=== PATIENT | male | born 1940 | race Caucasian/White ===

== ENCOUNTER 2017-11-17 09:24 | Day surgery (SDC) | payer MEDICARE, SELFPAY ==
[2017-11-12 15:15] VITALS: BMI 26.4
[2017-11-17] VITALS (9 sets, daily range): BP systolic 109–175; BP diastolic 77–107; PULSE 66–74; RESP 18–20; TEMP 36.4–36.7; O2SAT 93–99
--- NOTE | 2017-11-17 10:11 | HMH.PROC ---
[facility] Procedure Note Procedure Note:: Upper Endoscopy Procedure Report: Esophagogastroduodenoscopy with TTS balloon dilation Endoscopost: Dann Kirk II, MD Referring Physician: Rakesh Lainez M.D./Hieu Sifuentes MD Date of Procedure: November 17, 2017 Equipment: Olympus GIF 180 standard upper endoscope Sedation: Fentanyl 100 mg IV/ Versed 7 mg IV Indications: Mr. Sánchez is a 77-year-old gentleman with dysphagia that began a couple of months ago. He was having some heartburn which improved with omeprazole. Symptoms have improved. He reports no heartburn, reflux, bloating, belching, nausea or early satiety. He reports no abdominal pain and reports regular bowel function. This is his first upper endoscopy. He was having some globus sensation. Procedure: Prior to the procedure, a history and physical exam was performed, and patient's medications and allergies were reviewed. The risks, benefits and alternatives of the sedation and procedure were discussed with the patient. All questions were answered and informed consent was obtained. The patient was brought to the procedure room. Patient identification and proposed procedure were verified by the physician and the nurse. The patient was placed in a left lateral decubitus position and the scope was passed under direct vision. Throughout the procedure, the patient's blood pressure, pulse, and oxygen saturations were monitored continuously. The upper GI endoscopy was accomplished without difficulty. The patient tolerated the procedure well. Findings: The scope was passed directly into the upper esophagus and advanced to the third portion of the duodenum. The post bulbar duodenum and duodenal bulb were normal with normal mucosa and conniventes. The scope was withdrawn through a normal duodenal bulb and pylorus into the stomach. There was some mild linear reactive antritis/gastritis. The remainder of the antrum, body and fundus of the stomach were grossly normal. Upon retroflexion there was a small 2 cm hiatal hernia. The scope was then withdrawn into the esophagus. There was a distal Schatzki's ring that did not appear to be significant. There were some tertiary contractions and mild esophageal dysmotility. The entire esophagus was dilated to 60 Danish/20 mm with a TTS hydrostatic balloon. There was some resistance at the cricopharyngeus. The remainder of the esophageal mucosa was normal. Impression: 1. Mild cricopharyngeal spasm 2. Insignificant Schatzki's ring with small 2 cm hiatal hernia and nonerosive GERD 3. Mild linear reactive antritis/gastritis Plan: The patient is clinically improved with omeprazole. I would encourage screening colonoscopy since he has not had one previously.
--- NOTE | 2017-11-17 10:15 | P.PCN_ITS ---
[facility] Procedure Note Procedure Note:: Upper Endoscopy Procedure Report: Esophagogastroduodenoscopy with TTS balloon dilation Endoscopost: Dann Kirk II, MD Referring Physician: Rakesh Lainez M.D./Hieu Sifuentes MD Date of Procedure: November 17, 2017 Equipment: Olympus GIF 180 standard upper endoscope Sedation: Fentanyl 100 mg IV/ Versed 7 mg IV Indications: Mr. Sánchez is a 77-year-old gentleman with dysphagia that began a couple of months ago. He was having some heartburn which improved with omeprazole. Symptoms have improved. He reports no heartburn, reflux, bloating , belching, nausea or early satiety. He reports no abdominal pain and reports regular bowel function. This is his first upper endoscopy. He was having some globus sensation. Procedure: Prior to the procedure, a history and physical exam was performed, and patient' s medications and allergies were reviewed. The risks, benefits and alternatives of the sedation and procedure were discussed with the patient. All questions were answered and informed consent was obtained. The patient was brought to the procedure room. Patient identification and proposed procedure were verified by the physician and the nurse. The patient was placed in a left lateral decubitus position and the scope was passed under direct vision. Throughout the procedure, the patient's blood pressure, pulse, and oxygen saturations were monitored continuously. The upper GI endoscopy was accomplished without difficulty. The patient tolerated the procedure well. Findings: The scope was passed directly into the upper esophagus and advanced to the third portion of the duodenum. The post bulbar duodenum and duodenal bulb were normal with normal mucosa and conniventes. The scope was withdrawn through a normal duodenal bulb and pylorus into the stomach. There was some mild linear reactive antritis/gastritis. The remainder of the antrum, body and fundus of the stomach were grossly normal. Upon retroflexion there was a small 2 cm hiatal hernia. The scope was then withdrawn into the esophagus. There was a distal Schatzki's ring that did not appear to be significant. There were some tertiary contractions and mild esophageal dysmotility. The entire esophagus was dilated to 60 [place]/20 mm with a TTS hydrostatic balloon. There was some resistance at the cricopharyngeus. The remainder of the esophageal mucosa was normal. Impression: 1. Mild cricopharyngeal spasm 2. Insignificant Schatzki's ring with small 2 cm hiatal hernia and nonerosive GERD 3. Mild linear reactive antritis/gastritis Plan: The patient is clinically improved with omeprazole. I would encourage screening colonoscopy since he has not had one previously.
== END 2017-11-17 11:00 | disposition home or self-care (01) ==
PROVIDERS: Family Provider Family Medicine; PCP Family Medicine; Visit Provider Internal Medicine Gastroenterology
PROC: 0DJ08ZZ Inspection of Upper Intestinal Tract, Via Natural or Artificial Opening Endoscopic (ICD-10-PCS; CPT 43235; principal; 2017-11-17 10:30)
DX: J39.2 Other diseases of pharynx (principal); K22.2 Esophageal obstruction; K44.9 Diaphragmatic hernia without obstruction or gangrene; K29.60 Other gastritis without bleeding
CPT/HCPCS: 43249; 99152; C1726

== ENCOUNTER → 2018-06-30 13:19 | Outpatient (CLI) | payer MEDICARE, SELFPAY ==
[2018-06-30 13:44] LABS: Blood Urea Nitrogen 30 mg/dL (7-18); Creatinine,Serum 1.14 mg/dL (0.70-1.30); Estimated Glomerular Filt Rate 62 ml/min (>60); GFR (African American) 75 ML/MIN (>60)
--- NOTE | 2018-06-30 13:50 | CT_ITS ---
CT head/brain wo/w con HISTORY: Severe headache, left temporal pain ITS.REASON: TEMPORAL PAIN ORDERING PHYSICIAN: Sandee Lainez MD PATIENT AGE: 78 years COMPARISON: None TECHNIQUE: Axial images obtained without and with contrast. Brain and bone windows reviewed. All CT scans at the facility use one or more dose reduction, viz: automated exposure control, ma/kV adjustment per patient size (including targeted exams where dose is matched to indication, i.e. head), or iterative reconstruction technique. FINDINGS: No midline shift, mass effect, intracranial hemorrhage, hydrocephalus, or extra-axial fluid collection is evident. No enhancing lesions. No large aneurysms. No intra or extra-axial mass. The calvarium has an unremarkable appearance. No mastoid effusion. No sinus air-fluid levels.. IMPRESSION: Negative CT head without and with contrast.
== END ==
PROVIDERS: PCP Family Medicine; Visit Provider Family Medicine
DX: R51 Headache (principal)
CPT/HCPCS: 36415; 70470; 82565; 84520; Q9967

== ENCOUNTER → 2022-01-16 06:12 | Outpatient (CLI) | payer SELFPAY ==
--- NOTE | 2022-01-16 06:14 | CT_ITS ---
FINAL REPORT TECHNIQUE: Thin-section axial images were obtained through the heart and coronary arteries per CT coronary calcium score protocol. This study was performed with techniques to keep radiation doses as low as reasonably achievable (ALARA). Individualized dose reduction techniques using automated exposure control or adjustment of mA and/or kV according to the patient's size were employed. CLINICAL HISTORY: . abnormal ekg, chest pain FINDINGS: CT-CHEST WITHOUT W/ CALCIUM SCORE The coronary artery calcium score is 243 based on the Agatston scale. This coronary artery calcium score places the patient within the 30th percentile based on age and gender. The heart size is normal. There is no pleural or pericardial effusion. Limited evaluation of the lungs reveal no suspicious nodule. IMPRESSION: Coronary artery calcium score is 243 which places the patient within the 30th percentile based on age and gender. Reviewed, Interpreted and Dictated by Albert Villegas MD Transcribed by Laurel White Authenticated by Albert Villegas MD on 01/16/2022 11:37:00 AM [facility]
== END ==
PROVIDERS: PCP Family Medicine; Visit Provider Internal Medicine Cardiovascular Disease
DX: R94.31 Abnormal electrocardiogram [ECG] [EKG] (principal); R00.2 Palpitations; I10 Essential (primary) hypertension
CPT/HCPCS: 75571

== ENCOUNTER → 2022-01-16 06:15 | Outpatient (CLI) | payer MEDICARE, OTHER, SELFPAY ==
--- NOTE | 2022-01-16 06:16 | CA_ITS ---
APPROVED REPORT EXAM: Comprehensive 2D, Doppler, and color-flow Echocardiogram Certified Residential Medication Aide: Orquidea Garcia, KD, RVS Ht: 6 ft 2 in Wt: 199lbs BSA: 2.17 BP: 150/80 mmHg Indications: Palpitations, ABN EKG, cardiac arrythmia, Murmur, HTN 2D Dimensions Aortic Root 3.74 cm LA Volume 85.50 mL Left Atrium 2.65 cm LA Volume Index 39.40 mL/m2 (M/F) 16-34 LVOT 2.10 cm (M/F) 1.5-2.5 M-Mode Dimensions RVDd 1.63 cm (0.9-2.6) LA Diam 3.62 cm (1.9-4.0) LVDd 6.50 cm (3.5-5.7) Ao Diam 3.96 cm (2.0-3.7) LVDs 4.22 cm (3.5-5.7) IVSd 1.06 cm (0.6-1.1) PWd 0.91 cm (0.6-1.1) EF (Teich) 63.20% EPSs 0.80 cm FS 35.10% EDV (Teich) 216.00 mL TAPSE 2.34 (<1.7) ESV (Teich) 79.50 mL LV Diastology E Decel Time 317.00 (160-240 msec) E/A Ratio 1.16 MED E' 7.90 (< 7 cm/sec) MED A' 11.40 cm/s E'/MED E' Ratio 7.00 (>14) LAT E' 7.20 (<10 cm/sec) LAT A' 11.30 cm/s E/LAT E' Ratio 7.68 (>14) Aortic Valve LVOT Max 85.00 (70-110 cm/s) LVOT VTI 20.70 cm AoV Peak Leobardo. 126.00 (50-130 cm/s) AI PHT 833.00 ms AO Peak GR. 6.40 mmHg AO Mean GR. 3.20 (<5 mmHg) AO VTI 28.64 (18-25 cm) VIVEK (VTI) 2.50 (2.5-4.5 cm2) Mitral Valve MV A Velocity 48.00 (40-130 cm/s) E/A Ratio 1.16 MV Decel. Time 317.00 (160-240 ms) Pulmonary Valve PV Peak Velocity 109.00 (50-150 cm/s) CO End VMAX 162.00 cm/s Tricuspid Valve TR P. Velocity 306.00 cm/s RAP Estimate 10.00 mmHg RVSP 47.50 mmHg Left Ventricle Left atrium is mildly enlarged, left ventricle is normal size, mild concentric left ventricular hypertrophy, estimated ejection fraction 50% with no obvious regional wall motion abnormality, grade 1 diastolic dysfunction seen without tissue Doppler evidence of raise left atrial pressure. Right Ventricle Right atrium and right ventricle mildly enlarged with normal contractility. Aortic Valve Aortic valve is thickened and calcified without aortic stenosis, there is mild aortic insufficiency. Mitral Valve Mitral valve is minimally thickened, there is mild mitral regurgitation. Tricuspid Valve Tricuspid grossly normal, there is mild tricuspid regurgitation, calculated right ventricular systolic pressure is 47 mmHg. Pulmonic Valve Pulmonic valve is poorly visualized. Great Vessels Aortic root is normal size. Inferior vena cava is poorly visualized. Pericardium No significant pericardial effusion noted. Conclusion 1. Biatrial enlargement, normal left ventricular size, mild concentric left ventricular hypertrophy, estimated ejection fraction 50% with no regional wall motion abnormality, grade 1 diastolic dysfunction seen without tissue Doppler evidence of raise left atrial pressure. 2. Mildly enlarged right ventricle with normal contractility. 3. Thickened and calcified aortic valve without aortic stenosis, there is mild aortic insufficiency. 4. Mild mitral and tricuspid regurgitation, calculated right ventricular systolic pressure is 47 mmHg. 5. No significant pericardial effusion. 6. Inferior vena cava is poorly visualized. Electronically signed by : Denver Cortes MD 01/16/2022 21:24:54
--- NOTE | 2022-01-16 06:16 | CA_ITS ---
APPROVED REPORT Exam: Exercise Treadmill Technologist: Alexus Hanna, Ht: 6 ft 2 in Wt: 199 lbs BSA: 2.17 m2 HR: 55 bpm BP: 169/95 mmHg Rhythm: sinus eliza, 1st degree AVB, frequent PVCs, LAFB Medical History Medical History: HTN Medications: Omeprazole,,,,, MeLOXICAM,,,,, Cardiac Risk Factors: HTN Stress Test Details Test: Braeden HR Resting HR: 62 bpm Max Heart Rate (APMHR): 140.377580 bpm Max HR Achieved: 134 bpm Target HR (85% APMHR): 119.710920 bpm % of APMHR: 95.71 Recovery HR: 112 bpm BP Resting BP: 158/93 mmHg Max BP: 186/90 mmHg Recovery BP: 178.0/109.0 mmHg ECG Resting ECG: sinus eliza, 1st degree AVB, frequent PVCs, LAFB Clinical Exercise duration: 08:16 min Highest Stage Achieved: Exercise capacity: 10.1 METs Stress ECG Conclusion Pt exercised 8:16 on braeden protocol into stage 3. No CP noted. Frequent PVCs, occasional vent couplet. Occasional PAC. Allowing for motion artifact the ST response to exercise is within normal. Frequent vent ectopy, otherwise normal GXT. Myoview images reported separately. Test Summary REST . . . . . . . Sitting REST . . . . . . . Standing REST 06:04 0.0 0.0 62 . 158/ 93 . . Stage 1 01:00 10.0 1.7 82 . . . . Stage 1 02:00 10.0 1.7 86 . . . . Stage 1 03:00 10.0 1.7 89 . 184/ 98 . . Stage 2 01:00 12.0 2.5 95 . . . . Stage 2 02:00 12.0 2.5 100 . . . . Stage 2 03:00 12.0 2.5 105 . 186/ 90 . . Stage 3 01:00 14.0 3.4 113 . . . . Stage 3 02:00 14.0 3.4 119 . . . . Stage 3 02:16 14.0 3.4 124 . . . Stop exercise at 08:16 RECOVERY 01:00 0.0 0.0 112 . . . . RECOVERY 02:00 0.0 0.0 86 . . . . RECOVERY 03:00 0.0 0.0 78 . . . . RECOVERY 04:00 0.0 0.0 74 . . . . RECOVERY 05:00 0.0 0.0 77 . 178/109 . . RECOVERY 06:00 0.0 0.0 70 . 146/105 . . RECOVERY 07:00 0.0 0.0 66 . 146/105 . . RECOVERY 08:00 0.0 0.0 69 . 146/105 . . RECOVERY 08:26 0.0 0.0 69 . 163/ 96 . . Electronically signed by : Denver Cortes MD 01/16/2022 22:08:04
--- NOTE | 2022-01-16 06:28 | NM_ITS ---
APPROVED REPORT Exam: Nuclear Stress Test Indication: HTN, PALPATATIONS, ABN EKG Patient Location: Outpatient Stress Tech: Alexus Hanna NM Tech:Marlen De La OANDIE RT (R)(N)(M) Ht: 6 ft 4 in Wt: 199 lbs HR: 55 bpm BP: 169/95 mmHg BSA: 2.21 m2 BMI: 24.2 History: HTN, PALPATATIONS, ABN EKG Procedure: Patient exercised on Braeden protocol 8:16 minutes and sec, resting heart rate 55 bpm, resting blood pressure 169/95 mmHg, with exercise maximum heart rate achived was 121 bpm which is 89 % of the maximum predicted heart rate and blood pressure was 186/90 mmHg. Test was stopped due to SOA. Patient denied any complaint of chest pain. Patient has good exercise capacity, achieved 10.1 METs of workload on treadmill, the blood pressure response to exercise was Adequate. Electrocardiogram Resting electrocardiogram shows sinus rhythm, with exercise there is less than 1.[address] segment depression noted from the baseline EKG. The EKG portion of the exercise Myoview is negative for ischemia. Cardiac Stress and Resting SPECT Images: Cardiac Stress and Resting SPECT images were obtained using technetium 99m Myoview 31.5 mCi stress and 10.37 mCi at rest. Gated SPECT for analysis of segmental wall motion and calculation of the ejection fraction also done. Cardiac stress and resting SPECT, show partial reversible defect involving the inferior wall consistent with mixed ischemia and scar, computer derived ejection fraction 38% with moderate inferior wall hypokinesis. Right ventricle is normal size and contractility. Conclusion: 1. The EKG portion of the exercise Myoview is negative for ischemia, patient has good exercise capacity achieved 10.1 METs of workload on treadmill, the blood pressure response to exercise was adequate, there was no exercise-induced chest discomfort. 2. Scintigraphic evidence of mixed ischemia and scar involving the inferior wall, computer derived ejection fraction 38% with segmental wall motion abnormality described above, right ventricle is normal size and contractility 3. Abnormal exercise Myoview study. Electronically signed by : Denver Cortes MD 01/16/2022 22:13:53
== END ==
PROVIDERS: PCP Family Medicine; Visit Provider Internal Medicine Cardiovascular Disease
DX: I10 Essential (primary) hypertension (principal); R00.2 Palpitations; R94.31 Abnormal electrocardiogram [ECG] [EKG]
CPT/HCPCS: 78452; 93017; 93306; A9502

== ENCOUNTER → 2022-01-26 08:59 | Outpatient (CLI) | payer MEDICARE, OTHER, SELFPAY ==
[2022-01-26 09:59] LABS: Basophils # 0.1 K/mm3 (0-0.2); Basophils % 0.7 % (0.1-2.0); Eosinophils # 0.1 K/mm3 (0.0-0.4); Eosinophils % 1.6 % (0.1-12.0); Hematocrit 46.4 % (42.0-52.0); Hemoglobin 15.2 g/dL (14.1-18.0); Lymphocytes # 1.3 K/mm3 (0.7-4.5); Lymphocytes % 14.2 % (10-50); Mean Corpuscular HGB Conc 32.8 g/dL (31.8-35.4); Mean Corpuscular Hemoglobin 35.7 pg (27.0-31.2); Mean Corpuscular Volume 108.8 fl (80-94); Mean Platelet Volume 8.5 fl (7.4-10.4); Monocytes # 1.1 K/mm3 (0.1-1.0); Monocytes % 12.3 % (1.7-9.3); Neutrophils # 6.4 K/mm3 (1.8-7.8); Neutrophils % 71.1 % (37.0-80.0); Platelet Count 310 K/mm3 (142-424); Red Blood Count 4.26 M/mm3 (4.60-6.20); Red Cell Distribution Width 14.3 % (11.5-17.5); White Blood Count 8.9 K/mm3 (4.8-10.8)
[2022-01-26 10:33] LABS: Anion Gap 13.3 mEq/L (5-15); Blood Urea Nitrogen 23 mg/dl (9-20); Calcium 8.3 mg/dl (8.4-10.2); Carbon Dioxide 26 mmol/L (22.0-30.0); Chloride 103 mmol/L (98-107); Estimated Glomerular Filt Rate 58 ml/min (>60); GFR (African American) 70 ML/MIN (>60); Glucose 99 mg/dl (74-100); Potassium 4.3 mmoL/L (3.5-5.1); Sodium 138 mmol/L (136-145)
== END ==
PROVIDERS: Visit Provider Internal Medicine Cardiovascular Disease
DX: I10 Essential (primary) hypertension (principal); R00.2 Palpitations; R94.30 Abnormal result of cardiovascular function study, unspecified; R94.31 Abnormal electrocardiogram [ECG] [EKG]; Z01.812 Encounter for preprocedural laboratory examination; Z11.52 Encounter for screening for COVID-19
CPT/HCPCS: 36415; 80048; 85025; C9803; U0003; U0005

== ENCOUNTER 2022-01-28 08:31 | Day surgery (SDC) | payer MEDICARE, OTHER, SELFPAY ==
[2022-01-28] VITALS (11 sets, daily range): BP systolic 118–200; BP diastolic 71–117; PULSE 51–71; RESP 18; O2SAT 94–100; BMI 25.7
--- NOTE | 2022-01-28 07:15 | IR_ITS ---
APPROVED REPORT Patient Location: Outpatient Saw Offbearer: ANDIE Cavazos RT (R) PROCEDURES Left heart catheterization Left ventriculogram Selective coronary angiogram FFR to the LAD Intravascular lithotripsy Drug-eluting stent deployment to the proximal LAD INDICATION Coronary artery disease, Systolic congestive heart failure, Eccentric calcification above the proximal LAD, Angiographic ambiguity in the proximal LAD, Ischemic response to adenosine with an FFR index of 0.77 Informed consent was obtained prior to the procedure. COMPLICATIONS None Estimated Blood Loss: Less than 10 mls TECHNIQUE One percent lidocaine used to anesthetize the right anterior aspect of the wrist. The right radial artery was accessed via the Seldinger technique. A 6 Icelandic sheath was placed in the right radial artery. 2.5 mg of verapamil, 800 mcg of nitroglycerin, 1mg Lidocaine and 5000 U Heparin were given through the arterial sheath. The papa catheter was also used to perform left heart catheterization, left ventriculogram and selective coronary angiogram. At the end the diagnostic angiogram initially a Poppa catheter was used however this was not providing adequate guide support therefore a 6 Icelandic JL 3 guide catheter was ultimately used for the terminal aspect of the interventional procedure. Therapeutic heparin was administered giving a therapeutic ACT at the end of the diagnostic angiogram. A Choice PT extra-support wire was placed distally in the LAD and an FFR catheter was equalized and adenosine was infused. The FFR index dropped to 0.77 therefore the apparatus was removed. Because of the eccentric calcified proximal lesion a 3 mm x 15 mm balloon was initially used to predilate the stenosis. Following this a shockwave 3.5 x 12 mm balloon was deployed at 4 taniya and 30 pulses were delivered to fragment the calcium and pretreat the eccentric calcified lesion. Following this a 4 mm x 18 mm resolute Ramakrishna stent was deployed at 18 taniya reducing the hemodynamically severe calcified stenosis to 0%. MAYRA-3 flow was present before and after the procedure. At the end the procedure the apparatus was removed the sheath was removed and hemostasis was achieved using TR banding patient was transferred to the postop holding in stable condition ANGIOGRAPHIC RESULTS The left main artery Normal The left anterior descending artery Has a proximal eccentric 20 to 30% stenosis followed by proximal to mid vessel calcified eccentric 50 to 60% stenosis. The remaining LAD is widely patent. A large first diagonal artery is present has mild nonflow limiting plaque The circumflex artery Nondominant normal The right coronary artery Large dominant normal The KIM ventriculogram reveals Dilated ventricle ejection fraction 40% The left ventricular end-diastolic pressure 20 mmHg IMPRESSION Coronary artery disease as described above Successful pretreatment with shockwave lithotripsy balloon reducing the calcium and producing calcium fragmentation Successful drug-eluting stent deployment to the proximal LAD hemodynamically severe disease reduced to 0% with 1 drug-eluting stent Left ventricular dysfunction with mildly elevated LVEDP PLAN 1. Dual antiplatelet therapy 2. Standard therapy for systolic heart failure 3. LDL less than 55 to be achieved with high intensity statin 4. Cardiac rehabilitation 5. Avoidance of tobacco products 6. Risk factor modification Electronically signed by : Leodan Busby MD 01/28/2022 13:08:29
[2022-01-28 12:27] LABS: CATHL Activated Clotting Time 334 SEC (74-125)
[2022-01-28 12:27] LABS: CATHL Activated Clotting Time > 400 SEC (74-125)
--- NOTE | 2022-01-28 14:51 | HMH.PHACLD ---
Will Logan has received discharge medication counseling on the following medications: -BRILINTA (BLEED/BRUISE RISK, TAKE TWICE DAILY, IF YOU BUMP HEAD BE SEEN IN THE ER) -ATORVASTATIN -ASPIRIN -BISOPROLOL -NO DARIAN/ARB PER MD (PT NORMOTENSIVE, CONTROLLED WITH BISOPROLOL).
== END 2022-01-28 15:06 | disposition home or self-care (01) ==
LOC: CATHLAB 08:33
PROVIDERS: PCP Family Medicine; Visit Provider Internal Medicine
DX: I50.22 Chronic systolic (congestive) heart failure (principal); R94.30 Abnormal result of cardiovascular function study, unspecified; I11.0 Hypertensive heart disease with heart failure; R00.2 Palpitations; R94.31 Abnormal electrocardiogram [ECG] [EKG]; Z79.899 Other long term (current) drug therapy; I25.10 Atherosclerotic heart disease of native coronary artery without angina pectoris; I25.83 Coronary atherosclerosis due to lipid rich plaque
CPT/HCPCS: 93799; 85347; 92928; 93458; 93571; 99152; 99153; C1725; C1760; C1761; C1769; C1876; C9600; J0153; J1644; Q9967

== ENCOUNTER → 2022-02-05 09:19 | Outpatient (CLI) | payer MEDICARE, OTHER, SELFPAY ==
--- NOTE | 2022-02-05 09:22 | CA_ITS ---
FINAL REPORT CLINICAL HISTORY: M79.601 - Pain in right arm 8 days post cardiac cath, visible knot at AOI FINDINGS: UPPER EXTREMITY ARTERIAL DUPLEX Spectral and Doppler waveform evaluations of the right radial artery were performed. Spectral analysis was performed. There is no evidence of pseudoaneurysm. The radial artery is patent. A 1.5 cm hematoma is present. IMPRESSION: No evidence of pseudoaneurysm. 1.5 cm hematoma. Reviewed, Interpreted and Dictated by Darshan Guzman III, MD Transcribed by Michael Mims Authenticated by Darshan Guzman III, MD on 02/05/2022 01:36:03 PM [facility]
== END ==
PROVIDERS: PCP Family Medicine; Visit Provider Nurse Practitioner Family
DX: I10 Essential (primary) hypertension (principal); I25.10 Atherosclerotic heart disease of native coronary artery without angina pectoris; M79.601 Pain in right arm; R00.2 Palpitations; R07.9 Chest pain, unspecified; I72.4 Aneurysm of artery of lower extremity
CPT/HCPCS: 93931

== ENCOUNTER → 2022-02-08 08:28 | Outpatient (CLI) | payer MEDICARE, OTHER, SELFPAY ==
--- NOTE | 2022-02-08 08:29 | CA_ITS ---
FINAL REPORT TECHNIQUE: Color Doppler, duplex Doppler and olivas scale sonography of the bilateral neck vasculature was performed. Velocities were measured in the carotid arteries. Stenosis evaluation based on velocity criteria. CLINICAL HISTORY: LT CARTOID BRUIT,HTN,CAD FINDINGS: The peak systolic velocity of the right common carotid artery is 73 cm/sec and internal carotid artery 77 cm/sec. The diastolic velocity in the internal carotid artery is benign cm/sec. The ICA/CCA ratio is 2.1. Visually, a small amount of plaque is seen. These findings are consistent with less than 50% stenosis. The external carotid artery is patent. The right vertebral artery is patent with antegrade flow. The peak systolic velocity of the left common carotid artery is 129 cm/sec and internal carotid artery 78 cm/sec. The diastolic velocity in the internal carotid artery is 29 cm/sec. The ICA/CCA ratio is 2.1. Visually, a small amount of plaque is seen. These findings are consistent with less than 50% stenosis. The external carotid artery is patent. The left vertebral artery is patent with antegrade flow. IMPRESSION: Less than 50% carotid stenosis. Bilateral patent vertebral arteries. If indicated, CTA or MRA could further evaluate. Reviewed, Interpreted and Dictated by Darshan Guzman III, MD Transcribed by Yamile Qureshi Authenticated by Darshan Guzman III, MD on 02/08/2022 09:52:11 AM [facility]
== END ==
PROVIDERS: PCP Family Medicine; Visit Provider Nurse Practitioner Family
DX: I10 Essential (primary) hypertension (principal); I25.10 Atherosclerotic heart disease of native coronary artery without angina pectoris; R00.2 Palpitations; R09.89 Other specified symptoms and signs involving the circulatory and respiratory systems
CPT/HCPCS: 93880

== ENCOUNTER → 2022-02-19 14:28 | Outpatient (CLI) | payer MEDICARE, OTHER, SELFPAY | PROVIDERS: Visit Provider Internal Medicine Cardiovascular Disease | DX: Z01.812 Encounter for preprocedural laboratory examination; Z20.822 Contact with and (suspected) exposure to COVID-19; I25.118 Atherosclerotic heart disease of native coronary artery with other forms of angina pectoris; I10 Essential (primary) hypertension; E78.2 Mixed hyperlipidemia; R94.31 Abnormal electrocardiogram [ECG] [EKG] | CPT/HCPCS: C9803; U0003; U0005 ==

== ENCOUNTER 2022-02-20 08:04 | Day surgery (SDC) | payer MEDICARE, OTHER, SELFPAY ==
[2022-02-20] VITALS (13 sets, daily range): BP systolic 100–188; BP diastolic 59–108; PULSE 53–78; RESP 18; O2SAT 91–100; BMI 25.5
--- NOTE | 2022-02-20 07:05 | IR_ITS ---
APPROVED REPORT Patient Location: Outpatient Lithograph Printer: ANDIE Guzman RT (R) PROCEDURES Selective coronary angiogram FFR to the dominant right coronary artery INDICATION Known coronary artery disease, Angiographically ambiguous coronary artery disease, Recurrent and accelerated angina pectoris, Informed consent was obtained prior to the procedure. COMPLICATIONS None Estimated Blood Loss: Less than 10 mls TECHNIQUE One percent lidocaine used to anesthetize the right anterior aspect of the wrist. The right radial artery was accessed via the Seldinger technique. A 6 Albanian sheath was placed in the right radial artery. 2.5 mg of verapamil, 800 mcg of nitroglycerin, 1mg Lidocaine and 5000 U Heparin were given through the arterial sheath. The papa catheter was also used to perform selective coronary angiogram. At the end the diagnostic angiogram therapeutic heparin was administered giving a therapeutic ACT and the guide catheter was placed in the right coronary artery followed by a Choice PT extra-support wire. Nevus FFR catheter was equalized in the ostium and then advanced distally in the right coronary artery followed by infusion of adenosine. The FFR index dropped to 0.92. This did not meet hemodynamic significance for revascularization therefore the apparatus was removed the sheath was removed good hemostasis was achieved using TR banding patient was transferred to the postop putting in stable condition ANGIOGRAPHIC RESULTS The left main artery Normal The left anterior descending artery Has an ostial 10 to 20% stenosis followed by proximal stent which is widely patent free of in-stent restenosis with excellent proximal distal transitioning. The LAD is a large-caliber vessel with mid vessel 30 to 40% compression through myocardial bridge. The LAD wraps the apex The circumflex artery Nondominant normal The right coronary artery Large dominant with proximal 10 to 20% stenoses. Distally there is a telescoping ambiguous area possibly 40% stenosis. The KIM ventriculogram reveals Not performed The left ventricular end-diastolic pressure Not measured IMPRESSION Patent coronary arteries FFR index of 0.92 involving a dominant right coronary artery PLAN 1. Switch Brilinta to Plavix. Perhaps patient is experiencing some symptoms from the Brilinta. 2. Continue risk factor modification 3. LDL less than 55 to be achieved with high intensity statin 4. Avoidance of tobacco products 5. Risk factor modification 6. Cardiac rehabilitation Electronically signed by : Leodan Busby MD 02/20/2022 11:23:02
[2022-02-20 08:51] LABS: Basophils # 0.1 K/mm3 (0-0.2); Basophils % 1.2 % (0.1-2.0); Eosinophils # 0.3 K/mm3 (0.0-0.4); Eosinophils % 2.5 % (0.1-12.0); Hematocrit 43.5 % (42.0-52.0); Hemoglobin 14.3 g/dL (14.1-18.0); Lymphocytes % 17.1 % (10-50); Mean Corpuscular HGB Conc 32.8 g/dL (31.8-35.4); Mean Corpuscular Hemoglobin 35.3 pg (27.0-31.2); Mean Corpuscular Volume 107.6 fl (80-94); Mean Platelet Volume 7.9 fl (7.4-10.4); Monocytes # 1.2 K/mm3 (0.1-1.0); Monocytes % 10.2 % (1.7-9.3); Neutrophils # 8.1 K/mm3 (1.8-7.8); Platelet Count 298 K/mm3 (142-424); Red Blood Count 4.04 M/mm3 (4.60-6.20); Red Cell Distribution Width 14.2 % (11.5-17.5); White Blood Count 11.7 K/mm3 (4.8-10.8)
[2022-02-20 09:08] LABS: Chloride 106 mmol/L (98-107)
[2022-02-20 09:09] LABS: Potassium 3.8 mmoL/L (3.5-5.1); Sodium 140 mmol/L (136-145)
[2022-02-20 09:11] LABS: Blood Urea Nitrogen 27 mg/dl (9-20); Creatinine Clearance Estimated 58 mL/min (50-200); Estimated Glomerular Filt Rate 53 ml/min (>60); GFR (African American) 64 ML/MIN (>60)
[2022-02-20 09:12] LABS: Anion Gap 9.8 mEq/L (5-15); Carbon Dioxide 28 mmol/L (22.0-30.0); Glucose 129 mg/dl (74-100)
[2022-02-20 12:58] LABS: CATHL Activated Clotting Time 324 SEC (74-125)
== END 2022-02-20 14:11 | disposition home or self-care (01) ==
LOC: CATHLAB 08:06
PROVIDERS: PCP Family Medicine; Visit Provider Internal Medicine
DX: E78.2 Mixed hyperlipidemia (principal); I10 Essential (primary) hypertension; I25.118 Atherosclerotic heart disease of native coronary artery with other forms of angina pectoris; R94.31 Abnormal electrocardiogram [ECG] [EKG]; Z79.899 Other long term (current) drug therapy; Z79.01 Long term (current) use of anticoagulants
CPT/HCPCS: 80048; 85025; 85347; 93454; 93571; 99152; 99153; C1725; C1769; J0153; J1644; Q9967

== ENCOUNTER → 2022-03-04 14:29 | Outpatient (CLI) | payer MEDICARE, OTHER, SELFPAY ==
[2022-03-04 15:36] LABS: Alanine Aminotransferase 22 U/L (12-78); Albumin Level 4.1 g/dl (3.5-5.0); Alkaline Phosphatase 56 U/L (38-126); Aspartate Amino Transferase 36 U/L (17-59); Bilirubin,Indirect 0.2 mg/dL (0.0-0.9); Bilirubin,Total 0.2 mg/dl (0.2-1.3); Bilirubin,Unconjugated 0.4 mg/dL (0.0-1.1); Chol/HDL Ratio 3.4 (1-3.5); Cholesterol 155 mg/dl (140-200); HDL Cholesterol 46 mg/dl (40-60); Total Protein,Serum 6.8 g/dl (6.3-8.2); Triglycerides 172 mg/dl (30-150); VLDL Cholesterol 34 mg/dL (0-40)
[2022-03-04 15:48] LABS: Direct LDL Cholesterol 75.33 mg/dL (100-129)
== END ==
PROVIDERS: PCP Family Medicine; Visit Provider Nurse Practitioner
DX: E78.2 Mixed hyperlipidemia (principal); I10 Essential (primary) hypertension; I25.118 Atherosclerotic heart disease of native coronary artery with other forms of angina pectoris; R94.31 Abnormal electrocardiogram [ECG] [EKG]
CPT/HCPCS: 36415; 80061; 80076

== ENCOUNTER 2023-10-07 10:13 | Outpatient (CLI) | payer MEDICARE, SELFPAY ==
--- NOTE | 2023-10-07 10:19 | CA_ITS ---
FINAL REPORT TECHNIQUE: Color Doppler, duplex Doppler and olivas scale sonography of the bilateral neck vasculature was performed. Velocities were measured in the carotid arteries. Stenosis evaluation based on velocity criteria. CLINICAL HISTORY: ALLY,CALCIFICATION SEEN LT NECK ON DENTAL XRAY COMPARISON: 02/10/2022 FINDINGS: The peak systolic velocity of the right common carotid artery is 52 cm/sec and internal carotid artery 80 cm/sec. The diastolic velocity in the internal carotid artery is 26 cm/sec. The ICA/CCA ratio is 1.8. Visually, a small amount of plaque is seen. These findings are consistent with less than 50% stenosis. The external carotid artery is patent. The right vertebral artery is patent with antegrade flow. The peak systolic velocity of the left common carotid artery is 57 cm/sec and internal carotid artery 83 cm/sec. The diastolic velocity in the internal carotid artery is 26 cm/sec. The ICA/CCA ratio is 1.5. Visually, a small amount of plaque is seen. These findings are consistent with less than 50% stenosis. The external carotid artery is patent. The left vertebral artery is patent with antegrade flow. No significant changes noted since the prior carotid Doppler exam of 02/08/2022. IMPRESSION: No evidence of significant carotid stenosis. Bilateral patent vertebral arteries. If indicated, CTA or MRA could further evaluate. Reviewed, Interpreted and Dictated by Darshan Guzman III, MD Transcribed by Ericka Jones Authenticated and [facility]
== END 2023-10-07 23:59 ==
PROVIDERS: PCP Family Medicine; Visit Provider Family Medicine
DX: I65.23 Occlusion and stenosis of bilateral carotid arteries (principal)
CPT/HCPCS: 93880